=== PATIENT | male | born 1950 | race Caucasian/White ===

== ENCOUNTER → 2017-11-11 | Outpatient (CLI) | payer MEDICARE ==
[2017-11-11 13:32] LABS: BASO # 0.1 10*3/uL (0.0-0.1); BASO % 0.8 % (0.0-1.0); EOS # 0.2 10*3/uL (0.0-0.4); EOS % 2.7 % (1.0-4.0); HEMATOCRIT 47.9 % (42.0-52.0); HEMOGLOBIN 16.8 g/dl (14.0-18.0); LYMPH # 1.5 10*3/uL (1.3-4.4); LYMPH % 23.2 % (27.0-41.0); MEAN CELL VOLUME 91.1 fl (80.0-94.0); MEAN CORPUSCULAR HGB 31.9 pg (27.0-31.0); MEAN CORPUSCULAR HGB CONC 35.1 g/dl (33.0-37.0); MEAN PLATELET VOLUME 10.9 fl (9.6-12.3); MONO # 0.5 10*3/uL (0.1-1.0); MONO % 7.9 % (3.0-9.0); NEUT # 4.3 10*3/uL (2.3-7.9); NEUT % 65.2 % (47.0-73.0); PLATELET COUNT AUTOMATED 160 10*3/uL (130-400); RED BLOOD COUNT 5.26 10*6/uL (4.50-5.90); RED CELL DISTRI WIDTH 12.4 % (0-14.5); WHITE BLOOD COUNT 6.6 10*3/uL (4.8-10.8)
[2017-11-11 13:50] LABS: ALBUMIN 3.8 gm/dl (3.1-4.5); BILIRUBIN, DIRECT 0.2 mg/dL (0.0-0.2); TOTAL PROTEIN 7.9 gm/dL (6.4-8.2)
== END | disposition home or self-care (01) ==
LOC: LAB 13:01
PROVIDERS: Internal Medicine Gastroenterology
DX: E83.110 Hereditary hemochromatosis (principal)

== ENCOUNTER → 2018-01-06 | Outpatient (CLI) | payer MEDICARE ==
[2018-01-06 09:38] LABS: BASO # 0.1 10*3/uL (0.0-0.1); BASO % 1.1 % (0.0-1.0); EOS # 0.2 10*3/uL (0.0-0.4); EOS % 3.6 % (1.0-4.0); HEMATOCRIT 47.2 % (42.0-52.0); HEMOGLOBIN 16.5 g/dl (14.0-18.0); LYMPH # 1.4 10*3/uL (1.3-4.4); LYMPH % 28.8 % (27.0-41.0); MEAN CELL VOLUME 90.8 fl (80.0-94.0); MEAN CORPUSCULAR HGB 31.7 pg (27.0-31.0); MEAN PLATELET VOLUME 10.4 fl (9.6-12.3); MONO # 0.4 10*3/uL (0.1-1.0); MONO % 7.6 % (3.0-9.0); NEUT # 2.8 10*3/uL (2.3-7.9); NEUT % 58.7 % (47.0-73.0); PLATELET COUNT AUTOMATED 214 10*3/uL (130-400); RED CELL DISTRI WIDTH 12.5 % (0-14.5); WHITE BLOOD COUNT 4.8 10*3/uL (4.8-10.8)
[2018-01-06 09:51] LABS: IRON 148 ug/dL (65-175); TOTAL IRON BINDING CAPACITY 213 ug/dl (250-450)
[2018-01-06 10:00] VITALS: BP 143/90
[2018-01-06 10:20] VITALS: BP 137/89
== END | disposition home or self-care (01) ==
LOC: CANPRECLI → PHLEB 04:01
PROVIDERS: Internal Medicine Hematology & Oncology
DX: E83.119 Hemochromatosis, unspecified (principal)

== ENCOUNTER → 2018-02-03 | Outpatient (CLI) | payer MEDICARE ==
[2018-02-03 09:29] LABS: BASO # 0.1 10*3/uL (0.0-0.1); BASO % 1.2 % (0.0-1.0); EOS # 0.5 10*3/uL (0.0-0.4); EOS % 9.6 % (1.0-4.0); HEMATOCRIT 47.4 % (42.0-52.0); HEMOGLOBIN 16.4 g/dl (14.0-18.0); LYMPH # 1.5 10*3/uL (1.3-4.4); MEAN CELL VOLUME 91.2 fl (80.0-94.0); MEAN CORPUSCULAR HGB 31.5 pg (27.0-31.0); MEAN CORPUSCULAR HGB CONC 34.6 g/dl (33.0-37.0); MEAN PLATELET VOLUME 10.2 fl (9.6-12.3); MONO # 0.4 10*3/uL (0.1-1.0); MONO % 7.7 % (3.0-9.0); NEUT # 2.4 10*3/uL (2.3-7.9); NEUT % 49.3 % (47.0-73.0); PLATELET COUNT AUTOMATED 179 10*3/uL (130-400); RED CELL DISTRI WIDTH 12.9 % (0-14.5); WHITE BLOOD COUNT 4.8 10*3/uL (4.8-10.8)
[2018-02-03 09:41] LABS: IRON 125 ug/dL (65-175); TOTAL IRON BINDING CAPACITY 203 ug/dl (250-450)
[2018-02-03 09:45] VITALS: BP 133/84
[2018-02-03 10:18] VITALS: BP 144/58
== END | disposition home or self-care (01) ==
LOC: PHLEB 00:37
PROVIDERS: Internal Medicine Hematology & Oncology
DX: E83.119 Hemochromatosis, unspecified (principal)

== ENCOUNTER → 2018-03-03 | Outpatient (CLI) | payer MEDICARE ==
[2018-02-03 09:50] VITALS: BP 133/84
[2018-02-03 10:12] VITALS: BP 144/58
[2018-03-03 09:12] VITALS: BP 133/85
[2018-03-03 09:13] LABS: BASO # 0.1 10*3/uL (0.0-0.1); BASO % 1.3 % (0.0-1.0); EOS # 0.4 10*3/uL (0.0-0.4); EOS % 9.6 % (1.0-4.0); HEMATOCRIT 45.6 % (42.0-52.0); HEMOGLOBIN 15.6 g/dl (14.0-18.0); LYMPH # 1.4 10*3/uL (1.3-4.4); LYMPH % 31.4 % (27.0-41.0); MEAN CELL VOLUME 93.6 fl (80.0-94.0); MEAN CORPUSCULAR HGB CONC 34.2 g/dl (33.0-37.0); MEAN PLATELET VOLUME 10.2 fl (9.6-12.3); MONO # 0.4 10*3/uL (0.1-1.0); MONO % 8.7 % (3.0-9.0); NEUT # 2.3 10*3/uL (2.3-7.9); PLATELET COUNT AUTOMATED 172 10*3/uL (130-400); RED BLOOD COUNT 4.87 10*6/uL (4.50-5.90); RED CELL DISTRI WIDTH 13.2 % (0-14.5); WHITE BLOOD COUNT 4.6 10*3/uL (4.8-10.8)
[2018-03-03 09:26] LABS: TOTAL IRON BINDING CAPACITY 187 ug/dl (250-450)
[2018-03-03 09:30] LABS: IRON 87 ug/dL (65-175)
[2018-03-03 09:47] VITALS: BP 135/88
== END | disposition home or self-care (01) ==
LOC: PHLEB 01:43
PROVIDERS: Internal Medicine Hematology & Oncology
DX: E83.119 Hemochromatosis, unspecified (principal)

== ENCOUNTER → 2018-05-09 | Outpatient (CLI) | payer MEDICARE ==
[2018-05-09 11:19] LABS: BASO # 0.1 10*3/uL (0.0-0.1); BASO % 0.9 % (0.0-1.0); EOS # 0.3 10*3/uL (0.0-0.4); EOS % 4.8 % (1.0-4.0); LYMPH # 1.5 10*3/uL (1.3-4.4); LYMPH % 26.4 % (27.0-41.0); MONO # 0.5 10*3/uL (0.1-1.0); MONO % 9.3 % (3.0-9.0); NEUT # 3.3 10*3/uL (2.3-7.9); NEUT % 58.4 % (47.0-73.0); WHITE BLOOD COUNT 5.6 10*3/uL (4.8-10.8)
[2018-05-09 11:20] VITALS: BP 156/88
[2018-05-09 11:40] VITALS: BP 128/87
== END | disposition home or self-care (01) ==
LOC: PHLEB 02:50
PROVIDERS: Internal Medicine Hematology & Oncology
DX: E83.119 Hemochromatosis, unspecified (principal)

== ENCOUNTER → 2018-11-10 | Day surgery (SDC) | payer MEDICARE ==
[~2018-11-10] MED LIST: IBU800 M1 PO; MULTIVITAMINS1 EAC5 PO; OSTEO BI-FLEX1 EAC1 PO
--- NOTE | ~2018-11-10 | O ---
[place], [place] OPERATIVE NOTE NAME: HARRIET REYEZ UNIT #: [id number] ROOM: DOCTOR: CATHIE GONG MD BIRTHDATE: [birth year] DOS: PROCEDURE: Colonoscopy. INDICATION: Occult GI bleed. Informed consent was obtained from the patient after indication of procedure, the alternatives and potential complications were explained to him. PROCEDURE MEDICATION: Sedation was administered by Anesthesiology Department. SCOPE USED: Olympus diagnostic pediatric colonoscope variable stiffness, GIF-180. DEPTH OF INSERTION: To the cecum, which was identified by the usual landmarks, the appendiceal orifice, ileocecal valve and triangular fold, in addition to transillumination in the right lower quadrant. FINDINGS: After adequate sedation, the patient was placed in left lateral decubitus position. Rectal examination showed a normal sphincter tone and no external hemorrhoids. The scope was introduced into the rectum, then advanced to the cecum with slight difficulty due to looping the left colon. The prep was adequate. The colon mucosa appeared normal with no evidence of polyps, diverticular ulcerations. Retroflexed views in the rectum showed grade 2 internal hemorrhoids. The scope was then withdrawn after the rectum was decompressed. The patient tolerated the procedure well. IMPRESSION: 1. Normal colon mucosa with no polyps seen. 2. Internal hemorrhoids. PLAN: There is no need for further GI workup at this time. Repeat screening colonoscopy is advised in 10 years. Office followup will be scheduled p.r.n. [place], [place] OPERATIVE NOTE NAME: HARRIET REYEZ UNIT #: [id number] ROOM: DOCTOR: CATHIE GONG MD BIRTHDATE: [birth year] CATHIE GONG MD CM:OPRECORD:OPERATIVE NOTE 1101 1411 CATHIE GONG MD 11/10/18 1412 interface
[2018-11-10 09:15] VITALS: BP 169/91
[2018-11-10 11:02] VITALS: BP 117/70
[2018-11-10 11:17] VITALS: BP 135/82
[2018-11-10 11:32] VITALS: BP 146/93
== END | disposition home or self-care (01) ==
LOC: SDC 11-08 08:45
DX: K64.8 Other hemorrhoids (principal); M19.90 Unspecified osteoarthritis, unspecified site; Z98.42 Cataract extraction status, left eye; K21.9 Gastro-esophageal reflux disease without esophagitis; E83.110 Hereditary hemochromatosis; Z98.890 Other specified postprocedural states; Z72.89 Other problems related to lifestyle; Z87.891 Personal history of nicotine dependence; Z79.899 Other long term (current) drug therapy; Z80.6 Family history of leukemia; Z83.3 Family history of diabetes mellitus; Z82.3 Family history of stroke
CPT/HCPCS: 00812; G0121

== ENCOUNTER → 2020-05-21 | Outpatient (CLI) | payer MEDICARE | END | disposition home or self-care (01) | LOC: COVID19 00:12 | DX: J39.8 Other specified diseases of upper respiratory tract (principal); R05 Cough; R53.83 Other fatigue; Z20.828 Contact with and (suspected) exposure to other viral communicable diseases ==